=== PATIENT | female | born 1965 | race Caucasian/White ===

== ENCOUNTER 2018-02-27 08:47 | Emergency (ER) | payer MEDICAID ==
[2018-02-27 08:48] VITALS: BMI 24.7
[2018-02-27 09:10] VITALS: BP 151/83; PULSE 86; RESP 16; TEMP 98.2; O2SAT 98
--- NOTE | 2018-02-27 09:13 | C.PDOC ---
History Of Present Illness 52 yr old female w/ hx of R shoulder pain p/w R should pain. She notes same R shoulder pain for which she has had negative XR at her PMDS office. She notes pain to R shoulder and R elbow, without fall or trauma. No numbness of tingling or loss of function. She denies any rash. She notes taking her ibuprofen, prednisone as prescribed with mild relief of pain. Saw her PMD 3d prior. Pt is also requesting MRI. No fever, chills or night sweats or warm joint. No neck pain or any rashes over joint. No other complaints. Time Seen by Provider: 02/27/18 09:13 Chief Complaint (Nursing): Upper Extremity Problem/Injury Past Medical History Vital Signs: Last Vital Signs Temp 98.2 F 02/27/18 09:08 Pulse 86 02/27/18 09:08 Resp 16 02/27/18 09:08 BP 151/83 H 02/27/18 09:08 Pulse Ox 98 02/27/18 09:08 - Medical History PMH: Kidney Stones Family History: States: Unknown Family Hx - Social History Hx Alcohol Use: No Hx Substance Use: No Review Of Systems Constitutional: Negative for: Fever, Weakness Eyes: Negative for: Pain, Eyelid Inflammation, Redness ENT: Negative for: Ear Pain, Ear Discharge, Nose Congestion, Mouth Pain Cardiovascular: Negative for: Chest Pain, Edema Respiratory: Negative for: Cough, Shortness of Breath, SOB with Excertion, Pleuritic Pain Gastrointestinal: Negative for: Nausea, Vomiting, Constipation Genitourinary: Negative for: Dysuria, Frequency, Hematuria, Vaginal Bleeding Musculoskeletal: Positive for: Shoulder Pain (r shoulder, chronic), Arm Pain (R elbow, chronic). Negative for: Neck Pain, Back Pain, Hand Pain, Leg Pain, Foot Pain Skin: Negative for: Rash, Lesions, Jaundice Neurological: Negative for: Weakness, Numbness, Incoordination, Change in Speech, Altered Mental Status, Headache, Dizziness Psych: Negative for: Anxiety Physical Exam - Physical Exam Appears: Well, Non-toxic, No Acute Distress Skin: Normal Color, Warm, Dry Head: Atraumatic, Normacephalic Eye(s): bilateral: Normal Inspection, PERRL, EOMI Ear(s): Bilateral: Normal Nose: Normal Oral Mucosa: Moist Lips: Normal Appearing Teeth: Normal Dentition Throat: Normal Neck: Normal, Normal ROM, No Midline Cervical Tenderness, Supple Chest: Symmetrical Cardiovascular: Rhythm Regular Respiratory: Normal Breath Sounds Gastrointestinal/Abdominal: Normal Exam, Soft, No Tenderness, No Mass Back: Normal Inspection, No CVA Tenderness, No Vertebral Tenderness Extremity: Normal ROM, Tenderness (Right shoulder and R elbow pain, pain w/ active ROM. no pain w/ passive ROM. No warm erythematous joint. Mildly TTP. Good n/v staus distally. No contusions. ), Capillary Refill (normal), No Deformity, No Swelling Extremity: Bilateral: Atraumatic Pulses: Left Radial: Normal, Right Radial: Normal, Left Dorsalis Pedis: Normal, Right Dorsalis Pedis: Normal Neurological/Psych: Oriented x3, Normal Speech, Normal Cognition, Normal Motor Gait: Steady ED Course And Treatment O2 Sat by Pulse Oximetry: 98 Medical Decision Making Medical Decision Makin yr old female p/w chronic R shoulder pain. Normal N/V status distal to pain. Good ROM, passively. Able to touch L shoulder without issue. No rash or overlying erythema or crepitus noted. Likely chronic shoulder pain. Endorsed to pt outpt MRI req. Pt agreeable and states she does not need XR here, as she has had previous. Given previous negative XR and no worsening of pain, will seek pain control and reassessment. pain meds given pending re-eval [id number] reassessed: moderate pain improvement: instructed pt to continue OTC tylenol and f/u w/ PMD for possible MRI. Exam remains largely unremarkable, full rom and n/v intact to extremity. She endorsed understanding and is agreeable. Disposition - Disposition Disposition Time: 10:12 Condition: GOOD Instructions: Shoulder Pain (DC) Forms: Dr [employer] (Uzbek) - Clinical Impression Clinical Impression: Shoulder pain, right, Elbow pain, right
== END 2018-02-27 10:17 | disposition home or self-care (01) ==
LOC: C.ER 08:47
DX: M25.511 Pain in right shoulder (principal); M25.521 Pain in right elbow

== ENCOUNTER 2018-03-02 13:51 | Emergency (ER) | payer MEDICAID ==
[2018-03-02 13:51] VITALS: BMI 24.7
[2018-03-02 14:06] VITALS: BP 149/84; PULSE 79; RESP 16; TEMP 98; O2SAT 99
[2018-03-02] MEDS ORDERED: Oxycodone/Acetaminophen 5/325 mg Tab ONE (14:50)
[2018-03-02] MEDS ORDERED: Oxycodone/Acetaminophen 5/325 mg Tab PO STA (15:00)
--- NOTE | 2018-03-02 15:20 | C.PDOC ---
History Of Present Illness 52 year old female presents to the ED for evaluation of worsening right shoulder pain for 4 months. Patient reports she was seen by her PMD today who prescribed her diclofenac and MRI referral. Patient made an appointment with MRI, now awaiting MRI call. Denies numbness, tingling, fever, and any other associated symptoms. Time Seen by Provider: 03/02/18 14:21 Chief Complaint (Nursing): Upper Extremity Problem/Injury History Per: Patient History/Exam Limitations: no limitations Onset/Duration Of Symptoms: Other (x4 months.) Current Symptoms Are (Timing): Still Present Past Medical History Reviewed: Historical Data, Nursing Documentation, Vital Signs Vital Signs: Last Vital Signs Temp 98 F 03/02/18 14:01 Pulse 79 03/02/18 14:01 Resp 16 03/02/18 14:01 BP 149/84 03/02/18 14:01 Pulse Ox 99 03/02/18 14:01 - Medical History PMH: Kidney Stones Family History: States: Unknown Family Hx - Social History Hx Alcohol Use: No Hx Substance Use: No Review Of Systems Except As Marked, All Systems Reviewed And Found Negative. Constitutional: Negative for: Fever Musculoskeletal: Positive for: Shoulder Pain (right.) Neurological: Negative for: Weakness, Numbness, Incoordination Physical Exam - Physical Exam Appears: Well, Non-toxic Skin: Normal Color, Warm, Dry Head: Atraumatic, Normacephalic Eye(s): bilateral: Normal Inspection Oral Mucosa: Moist Extremity: No Normal ROM (decreased range of motion to the right shoulder secondary to pain. ), Tenderness (to the right shoulder.), Capillary Refill (less than 2 seconds.), No Deformity, No Swelling (or erythema.) Pulses: Left Radial: Normal, Right Radial: Normal Neurological/Psych: Oriented x3, Normal Speech, Normal Motor, Normal Sensation, Normal Reflexes ED Course And Treatment O2 Sat by Pulse Oximetry: 99 Progress Note: Plan: Percocet. Toradol. Progress/Update: Provided with an arm sling. Patient stable for discharge home. Prescribed Ultram. Disposition - Disposition Referrals: Karen Bella MD [Staff Provider] - Disposition: HOME/ ROUTINE Disposition Time: 15:18 Condition: STABLE Additional Instructions: Follow up with your PMD and Orthopedist within 2-3 days. Return to ED if feel worse. Prescriptions: traMADol [Ultram] 50 mg PO Q6 #20 tab Instructions: Shoulder Pain (DC) Forms: [facility] [employer] [employer] (Czech) - Clinical Impression Clinical Impression: Shoulder pain, right - PA / WORKDAY CONSULTANT / Resident Statement MD/DO has reviewed & agrees with the documentation as recorded. - Scribe Statement The provider has reviewed the documentation as recorded by the Scribe (Xiomara Licona) All medical record entries made by the Scribe were at my direction and personally dictated by me. I have reviewed the chart and agree that the record accurately reflects my personal performance of the history, physical exam, medical decision making, and the department course for this patient. I have also personally directed, reviewed, and agree with the discharge instructions and disposition.
== END 2018-03-02 15:36 | disposition home or self-care (01) ==
LOC: C.ER 13:51
DX: M25.511 Pain in right shoulder (principal)
CPT/HCPCS: 96372; 99283; J1885